=== PATIENT | female | born 1965 | race African-American/Black ===

== ENCOUNTER 2016-12-15 11:16 | Emergency (ER) | payer SELFPAY ==
[~2016-12-15] VITALS: Ht 157.5 cm; Wt 82.0 kg
[2016-12-15 11:18] VITALS: BP 154/76; PULSE 65; RESP 15; TEMP 98; O2SAT 97
[2016-12-15 13:00] VITALS: BP 146/71; PULSE 57; RESP 20; O2SAT 99
[2016-12-15] MEDS ORDERED: BENA25TA3 PO (13:00)
[2016-12-15] MEDS ORDERED: ONDANSETRON HCL 4 MG/2 ML VIAL IVP ONE (13:15)
[2016-12-15] MEDS ORDERED: DICYCLOMINE HCL 20 MG/2 ML VIAL IM ONE (13:15)
[2016-12-15] MEDS ORDERED: SODIUM CHLORIDE 0.9% FLUSH 5 ML FLUSH IVF PRN (13:15)
--- NOTE | 2016-12-15 13:15 | PD ---
HPI . Abdominal pain Chief Complaint: Abdominal Pain Time Seen by Provider: 13:10 Travel History International Travel<30 days: No Contact w/Intl Traveler<30days: No Traveled to known affect area: No History of Present Illness HPI Patient presents with upper abdominal pain which started 3 days ago. She states that her pain is exacerbated by eating. She reports emesis with eating. She believes that she's been vomiting about 3 times per day. She states that she is having 2 stools per day. She has had subjective fever. She denies any known sick contacts. She denies any previous similar history. She denies any urinary tract symptoms. She states that she feels short of breath when she gets upset. She is not having any chest pain. [facility] Past Medical History Medical History: Denies Significant Hx Influenza Vaccination: Yes ?: Not Past Surgical History Section: Yes Social History Alcohol Use: No Tobacco Use: Yes (3 cigs ) Substance Use: No Allergies-Medications (Allergen,Severity, Reaction): Coded Allergies: No Known Allergies (Unverified , 12/15/16) Reported Meds & Prescriptions Reported Meds & Active Scripts Active Reported Benadryl Allergy (Diphenhydramine HCl) 25 Mg Tab 25 Mg PO BID PRN Review of Systems Except as stated in HPI: all other systems reviewed are Neg General / Constitutional: Positive: Fever, Chills Cardiovascular: No: Chest Pain or Discomfort Respiratory: Positive: Shortness of Breath Gastrointestinal: Positive: Nausea, Vomiting, Diarrhea, Abdominal Pain Genitourinary: No: Urgency, Frequency, Dysuria Physical Exam Narrative GENERAL: Tearful woman. SKIN: Warm and dry. HEAD: Atraumatic. Normocephalic. EYES: Pupils equal and round. Extraocular movements are intact. ENT: No nasal bleeding or discharge. Mucous membranes pink and moist. NECK: Trachea midline. Neck is supple. CARDIOVASCULAR: Regular rate and rhythm. Heart sounds are normal. RESPIRATORY: No accessory muscle use. Lungs are clear with full air movement throughout. GASTROINTESTINAL: Abdomen soft, non-tender, nondistended. MUSCULOSKELETAL: No obvious deformities. No edema. NEUROLOGICAL: Awake and alert. No obvious cranial nerve deficits. Motor grossly within normal limits. Normal speech. PSYCHIATRIC: Anxious appearing; insight and judgment normal. Data Data Last Documented VS Vital Signs Date Time Temp Pulse Resp B/P Pulse Ox O2 Delivery O2 Flow Rate FiO2 12/15/16 13:00 57 20 146/71 99 12/15/16 11:18 98.0 Orders Complete Blood Count With Diff (12/15/16 13:10) Comprehensive Metabolic Panel (12/15/16 13:10) Lipase (12/15/16 13:10) Abdomen, Flat & Upright (12/15/16 ) Iv Access Insert/Monitor (12/15/16 13:10) Ondansetron Inj (Zofran Inj) (12/15/16 13:15) Sodium Chloride 0.9% Flush (Ns Flush) (12/15/16 13:15) Electrocardiogram (12/15/16 13:10) Dicyclomine Inj (Bentyl Inj) (12/15/16 13:15) Labs Laboratory Tests Test 12/15/16 13:35 White Blood Count 7.4 TH/MM3 Red Blood Count 4.30 MIL/MM3 Hemoglobin 13.1 GM/DL Hematocrit 38.7 % Mean Corpuscular Volume 90.0 FL Mean Corpuscular Hemoglobin 30.5 PG Mean Corpuscular Hemoglobin 33.9 % Concent Red Cell Distribution Width 13.8 % Platelet Count 165 TH/MM3 Mean Platelet Volume 9.0 FL Neutrophils (%) (Auto) 68.0 % Lymphocytes (%) (Auto) 24.2 % Monocytes (%) (Auto) 6.6 % Eosinophils (%) (Auto) 0.7 % Basophils (%) (Auto) 0.5 % Neutrophils # (Auto) 5.0 TH/MM3 Lymphocytes # (Auto) 1.8 TH/MM3 Monocytes # (Auto) 0.5 TH/MM3 Eosinophils # (Auto) 0.0 TH/MM3 Basophils # (Auto) 0.0 TH/MM3 CBC Comment DIFF FINAL Differential Comment Sodium Level 142 MEQ/L Potassium Level 4.0 MEQ/L Chloride Level 106 MEQ/L Carbon Dioxide Level 28.5 MEQ/L Anion Gap 8 MEQ/L Blood Urea Nitrogen 13 MG/DL Creatinine 0.76 MG/DL Estimat Glomerular Filtration 98 ML/MIN Rate Random Glucose 97 MG/DL Calcium Level 9.1 MG/DL Total Bilirubin 0.4 MG/DL Aspartate Amino Transf 21 U/L (AST/SGOT) Alanine Aminotransferase 19 U/L (ALT/SGPT) Alkaline Phosphatase 76 U/L Total Protein 8.0 GM/DL Albumin 3.7 GM/DL Lipase 116 U/L [facility] Medical Decision Making Medical Screen Exam Complete: Yes Emergency Medical Condition: Yes Interpretation(s) EKG shows sinus bradycardia with no acute ischemic change. Differential Diagnosis Differential diagnosis of abdominal pain includes but is not limited to gastritis, pancreatitis, hepatitis, gastroenteritis, gallbladder disease, constipation, urinary retention, UTI, peptic ulcer disease, diverticulitis or appendicitis Narrative Course This is a tearful patient who presents complaining with a three-day history of upper abdominal pain. She just got here from [place] 3 days ago and started having pain as soon as she got here. She has a benign exam. CBC & BMP Diagram 12/15/16 13:35 LFTs and lipase are normal. Abdominal x-rays to my interpretation show a nonobstructive pattern. I suspect inadequate elimination of stool. Diagnosis Primary Impression: Abdominal pain Qualified Code: R10.84 - Generalized abdominal pain Patient Instructions: Abdominal Pain (ED), General Instructions Additional Instructions: I would suggest taking milk of magnesia at bedtime nightly until your abdominal pain has resolved. Disposition: 01 DISCHARGE HOME Condition: Stable Josi Johnson MD Dec 15, 2016 13:15
[2016-12-15 13:53] LABS: BASOPHIL % 0.5 % (0.0-2.0); EOSINOPHIL % 0.7 % (0.0-4.0); HEMATOCRIT 38.7 % (35.0-46.0); HEMO FLAGS DIFF FINAL; LYMPH % 24.2 % (9.0-44.0); LYMPHOCYTE # 1.8 TH/MM3 (1.0-4.8); MEAN CORPUSCULAR HEMOGLOBIN 30.5 PG (27.0-34.0); MEAN CORPUSCULAR HGB CONC 33.9 % (32.0-36.0); MONO % 6.6 % (0.0-8.0); PLATELET COUNT 165 TH/MM3 (150-450); RED CELL DISTRIBUTION WIDTH 13.8 % (11.6-17.2); WHITE BLOOD COUNT 7.4 TH/MM3 (4.0-11.0)
[2016-12-15 14:18] LABS: ALKALINE PHOSPHATASE 76 U/L (45-117); TOTAL BILIRUBIN ADULT 0.4 MG/DL (0.2-1.0)
[2016-12-15 14:20] LABS: ALT (GPT) 19 U/L (10-53); ANION GAP 8 MEQ/L (5-15); AST (GOT) 21 U/L (15-37); BICARBONATE 28.5 MEQ/L (21.0-32.0); BLOOD UREA NITROGEN 13 MG/DL (7-18); CHLORIDE 106 MEQ/L (98-107); GLOMERULAR FILTRATION RATE 98 ML/MIN (>89); SODIUM (NA) 142 MEQ/L (136-145)
--- NOTE | 2016-12-15 15:19 | RADRPT ---
EXAM DATE/TIME: 12/15/2016 13:28 [place] COMPARISON: No previous studies available for comparison. INDICATIONS : Patient has been vomiting for three days. She also has had abdominal pain off and on. MEDICAL HISTORY : None. SURGICAL HISTORY : None. ENCOUNTER: Initial ACUITY: 3 days PAIN SCORE: 0/10 LOCATION: Abdomen FINDINGS: Supine and upright views of the abdomen were performed. The abdominal bowel gas pattern is normal. No air fluid levels are seen. No abnormal masses, calcifications, or organomegaly is seen. The visu alized lower lungs are clear. No evidence of free intraperitoneal gas. The osseous structures are u nremarkable. CONCLUSION: No acute disease. Bernardino Garcia MD on December 15, 2016 at 15:16 Board Certified Radiologist. This report was verified electronically.
--- NOTE | 2016-12-16 20:08 | EKG ---
Date Performed: 12/15/2016 Time Performed: 12:44:55 PTAGE: 51 years EKG: SINUS BRADYCARDIA BORDERLINE ECG NO PREVIOUS TRACING DOCTOR: Maciej Edmond Interpretating Date/Time 12/16/2016 20:06:41
== END 2016-12-15 15:38 | disposition home or self-care (01) ==
LOC: NEPA 11:16
DX: R10.10 Upper abdominal pain, unspecified (principal); R11.10 Vomiting, unspecified; R50.9 Fever, unspecified; R94.31 Abnormal electrocardiogram [ECG] [EKG]; Z72.0 Tobacco use
CPT/HCPCS: 74020; 80053; 83690; 85025; 93005; 96372; 96374; 99284; J0500; J2405